=== PATIENT | male | born 1945 | race Caucasian/White ===

== ENCOUNTER 2018-06-11 10:59 | Inpatient (IN) ==
[2018-06-11] MEDS ORDERED: NEO-SYNEPHRINE 50 MG in NS 250 ML IV SCH (12:15)
[2018-06-11] MEDS ORDERED: XANAX PO PRN (12:15)
[2018-06-11] MEDS ORDERED: POTASSIUM CHLORIDE 10 MEQ in NS 1,000 ML IV SCH (13:00)
--- NOTE | 2018-06-11 13:16 | Diag Imaging Result Doc PS360 ---
EXAM: CHEST-PORTABLE 06/11/2018 HISTORY: abnormal exam TECHNIQUE: AP portable at 1259 COMMENT: There are bilateral pleural effusions more so on the left than the right and interstitial and alveolar pulmonary edema. This was not present on 01/11/2013. There are sternotomy wires and anterior mediastinal surgical clips. IMPRESSION: Pulmonary edema and left pleural effusion. Electronically signed by Yaniv Pugh 06/11/2018 1:14 PM
[2018-06-11] MEDS: LEVAQUIN 750 MG/D5W 750 MG/150 ML IVPB IV SCH (13:19)
[2018-06-11] MEDS: SOLU-MEDROL IV SCH ×2 (13:19→20:41)
[2018-06-11 13:47] LABS: BASO# 0.03 X1000 (0.0-0.2); BASO% 0.5 % (0.0-0.8); EOS# 0.18 X1000 (0.0-0.7); EOS% 3.1 % (0.0-10.0); HEMATOCRIT 35.9 % (42.0-52.0); HEMOGLOBIN 11.8 g/dL (14.0-18.0); LYMPH# 1.21 X1000 (1.2-3.4); LYMPH% 20.5 % (20.5-51.1); MCH 29.1 PG (27-31); MCHC 32.9 g/dL (33-37); MCV 88.4 FL (81-99); MONO# 0.49 X1000 (0.11-0.59); MONO% 8.3 % (1.7-9.3); MPV 11.1 FL (7.4-10.4); NEUT# 3.98 X1000 (1.4-6.5); NEUT% 67.6 % (42.2-75.2); PLT 202 X1000 (130-400); RBC 4.06 XMIL (4.7-6.1); RDW 12.7 % (11.5-14.5); WBC 5.89 X1000 (4.8-10.8)
[2018-06-11] MEDS: NORCO-10 PO PRN (13:50)
[2018-06-11] MEDS ORDERED: LASIX IV ONE ×2 (13:53→15:19)
[2018-06-11 14:01] LABS: ALLEN TEST YES; BE 3.7 mmoll (-3.0-3.0); BLOOD TYPE ARTERIAL; HCO3-(ACT) 27.7 mmoll (20.0-26.0); METHB 1.1 % (0.0-1.5); MODALITY CANNULA; O2(CT) 15.4 mL/dL (15.0-23.0); O2HB 93.7 % (95.0-99.0); PCO2(98.6) 43 mmHg (35-45); PO2(98.6) 86 mmHg (60-100); SAMPLE BLOOD; SAO2 97.2 % (95.0-100.0); THB 11.6 g/dL (11.5-17.4); pH(98.6) 7.43 (7.35-7.45)
[2018-06-11 14:16] LABS: AGAP 9; ALB/GLOB RATIO 1.3; ALBUMIN 3.5 g/dL (3.5-5.0); ALKALINE PHOSPHATASE 71 U/L (32-122); BUN 14 mg/dL (8-22); CHLORIDE 100 mmol/L (98-107); COSMO 273; CREATININE 0.7 mg/dL (0.7-1.2); ESTIMATED GFR > 60; GLUCOSE 106 mg/dL (70-104); GOT 8 U/L (10-34); GPT < 5 U/L (10-44); POTASSIUM 4.4 mmol/L (3.5-5.1); SODIUM 136 mmol/L (136-145); TCO2 27 mmol/L (25-35); TOTAL BILIRUBIN 0.32 mg/dL (0.20-1.00); TOTAL PROTEIN 6.2 g/dL (6.3-8.3)
[2018-06-11] MEDS ORDERED: DUONEB (A & A) INH SCH (16:00)
[2018-06-11] MEDS: DUONEB (A & A) INH SCH ×3 (16:29→23:45)
[2018-06-11] MEDS ORDERED: ATIVAN IV PRN (18:50)
--- NOTE | 2018-06-11 19:48 | HISTORY AND PHYSICAL ---
HISTORY OF PRESENT ILLNESS: Mr. Mace is a 72-year-old white gentleman who comes to our office with severe shortness of breath. He also was hypotensive. Blood pressure was around 60 to 70 systolic in the office, and we decided to admit him. He is a known case of COPD and has generalized vascular disease and coronary artery bypass surgery done in 1999, and a left carotid endarterectomy. He had bilateral surgery in both leg arteries, and recently he had a stent put in abdominal aorta and the right common iliac artery. He has a nervous personality. He had one back surgery. He is a chronic heavy smoker, smoked for around 40 to 45 years. He smokes even right now about 2 packs of cigarettes per day. He has usually 3 beers every day and a half a pint of whiskey every night. REVIEW OF SYSTEMS: Other than shortness of breath and generalized weakness and nervousness, is noncontributory. PHYSICAL EXAMINATION: GENERAL: He is alert, oriented. He is not tremulous. VITAL SIGNS: Reveal temperature normal, pulse 65 per minute, respiratory rate 20 per minute, blood pressure 102/63, O2 saturation 92%. HEAD: Normocephalic. EYES: PERRLA. Fundus examination normal. NECK: Supple. JVP normal. ENT: Examination unremarkable. EXTREMITIES: There is no evidence of lymphadenopathy, thyroid enlargement, pedal edema, calf tenderness, anemia, or clubbing. There is mild cyanosis. Pedal pulses are feeble. BREASTS: Normal. CHEST: Normal on inspection. LUNGS: Bilateral poor air entry at the bases. Some rales at the mid zone. HEART: PMI in the 6th left intercostal space, just inside the midclavicular line. Heart sounds normal. No murmur, gallop, or rub noted. ABDOMEN: Nondistended. Reveals a scar from the current surgery. No guarding, rigidity, free fluid, masses, or organomegaly. Bowel sounds normal. RECTAL: Deferred. PRN PHYSICAL THERAPIST: Higher functions normal. Cranial nerves normal. Motor and sensory system examination unremarkable. Deep tendon reflexes normal. Plantars downgoing. SKULL AND SPINE: Examination normal for age. No cerebellar signs or signs of meningeal irritation. Normal locomotor exam. SKIN: Unremarkable. ASSESSMENT: The patient has congestive heart failure. ProBNP is elevated. Chest x-ray shows bilateral pleural effusions and pulmonary edema. PLAN: 1. Give intravenous Lasix. 2. Continue with the Lopressor. 3. Put him on Lovenox subcutaneously. 4. Monitor him in the ICU. 5. At the present time, we will get a pulmonary consult, and later on set up for cardiology consult. cc: Fabian Shearer MD
[2018-06-11] MEDS: AZULFIDINE PO SCH (20:40)
[2018-06-11] MEDS: LIPITOR PO SCH (20:42)
[2018-06-11] MEDS: NORCO-10 PO SCH (20:42)
[2018-06-11] MEDS: LOVENOX SUBQ SCH (20:42)
[2018-06-11] MEDS: XANAX PO SCH (20:43)
--- NOTE | 2018-06-11 20:59 | PULMONOLOGY CONSULTATION ---
DATE: 06/11/2018 REQUESTING PHYSICIAN: Dr. Shearer. REASON FOR CONSULTATION: Respiratory failure. HISTORY OF PRESENT ILLNESS: Mr. Mace is a 72-year-old white male with a greater than 100 pack year history for tobacco, ongoing tobacco use, significant alcohol use, coronary artery disease and significant peripheral vascular disease who recently underwent a stenting of an abdominal aneurysm approximately one month ago. The patient has had continued weakness and decline with episodes of panic attacks since that time. The patient was evaluated by Dr. Shearer today and was in respiratory distress in his office. The patient was admitted to the hospital for additional management. The patient denies fevers or chills. He does have daily cough with yellow sputum which has not changed for a long time. He has had increasing episodes of shortness of breath and panic. He has had increased lower extremity edema. He has not noted significant wheezing. PAST MEDICAL HISTORY: 1. COPD, with ongoing tobacco use. 2. Status post left carotid endarterectomy. 3. Coronary artery bypass grafting x 2. 4. Status post ablation for atrial fibrillation. 5. Recent abdominal aortic aneurysm repair by stenting. 6. Stenting of both lower extremities. 7. Thyroid ablation reported on one previous H P, but patient denies thyroid medication. 8. Hypertension. 9. Dyslipidemia. 10. Status post cervical neck surgery. 11. Status post incisional hernia repair by Dr. Nair following coronary artery bypass grafting. SOCIAL HISTORY: Ongoing tobacco and alcohol use. 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 FAMILY HISTORY: Positive for coronary artery disease, cerebral aneurysms, and COPD. REVIEW OF SYSTEMS: Notable for increased shortness of breath, increased peripheral edema, increasing anxiety. PHYSICAL EXAMINATION: General: Reveals a thin white male resting comfortably and in no distress. BP 103/68, heart rate 71, respiratory rate 20, oxygen saturation 95% on 3 L per nasal cannula. HEENT: Pupils are equal and reactive. Oropharynx appears clear. Neck: Supple. Chest: Reveals crackles in both lung bases. Cardiac: S1, S2. Abdomen: Soft. Extremities: Reveal 1+ peripheral edema. LABORATORIES: Chest x-ray reveals bilateral pleural effusion with pulmonary edema. Arterial blood gas reveals pH 7.43, pCO2 43, PO2 of 86 on 3 L nasal cannula. IMPRESSION: A 72-year-old with: 1. Acute hypoxemic respiratory failure. 2. Pulmonary edema. 3. Pleural effusions. 4. Heart failure. 5. Probable left ventricular clot with decreased ejection fraction noted on echocardiogram. Official report pending. 6. Alcohol abuse. 7. Tobacco abuse. RECOMMENDATIONS: 1. Continue oxygen for hypoxemic respiratory failure. 2. Initiate anticoagulation for possible left ventricular thrombus. 3. Diurese as tolerated. 4. Agree with steroids, nebulizers and antibiotics pending improvement in chest radiograph. 5. Anticipate Cardiology consultation. 6. Recommend smoking cessation and alcohol cessation. 7. [place] use of benzodiazepines with patient's recent discontinuation of alcohol. cc: MD Fabian Lopez MD
[2018-06-12] MEDS: DUONEB (A & A) INH SCH ×6 (03:40→23:59)
[2018-06-12] MEDS: SOLU-MEDROL IV SCH ×3 (04:24→20:31)
[2018-06-12] MEDS: XANAX PO SCH ×3 (04:26→20:30)
[2018-06-12] MEDS: NORCO-10 PO SCH ×4 (04:27→20:31)
[2018-06-12 04:58] LABS: HEMATOCRIT 36.5 % (42.0-52.0); HEMOGLOBIN 12.1 g/dL (14.0-18.0); MCH 29.7 PG (27-31); MCHC 33.2 g/dL (33-37); MCV 89.5 FL (81-99); MPV 11.5 FL (7.4-10.4); RBC 4.08 XMIL (4.7-6.1); RDW 12.6 % (11.5-14.5); WBC 3.46 X1000 (4.8-10.8)
[2018-06-12] MEDS: PRILOSEC PO SCH (06:03)
[2018-06-12 07:18] LABS: AGAP 11; ALB/GLOB RATIO 1.2; ALBUMIN 3.6 g/dL (3.5-5.0); ALKALINE PHOSPHATASE 72 U/L (32-122); BUN 17 mg/dL (8-22); CALCIUM 9.2 mg/dL (8.8-10.2); CHLORIDE 94 mmol/L (98-107); COSMO 273; CREATININE 0.9 mg/dL (0.7-1.2); ESTIMATED GFR > 60; GLUCOSE 163 mg/dL (70-104); GOT 9 U/L (10-34); GPT < 5 U/L (10-44); MAGNESIUM 1.6 mg/dL (1.5-2.7); PHOSPHORUS 4.5 mg/dL (2.7-4.5); POTASSIUM 3.9 mmol/L (3.5-5.1); SODIUM 134 mmol/L (136-145); TCO2 29 mmol/L (25-35); TOTAL BILIRUBIN 0.29 mg/dL (0.20-1.00); TOTAL PROTEIN 6.7 g/dL (6.3-8.3)
--- NOTE | 2018-06-12 07:23 | Diag Imaging Result Doc PS360 ---
CHEST-PORTABLE - 06/12/2018 INDICATION: abnormal exam COMPARISON: 06/11/2018 FINDINGS: Stable CABG changes. Stable cardiomegaly and pulmonary vascular congestion. Stable moderate pulmonary edema. Stable small pleural effusion. There is been increase in the left pleural effusion which is moderate, about 25%. IMPRESSION: Slight increase in the left pleural effusion. Electronically signed by Dread Pate 06/12/2018 7:21 AM
[2018-06-12] MEDS: ALTACE PO SCH (08:50)
[2018-06-12] MEDS: TOPROL XL PO SCH (08:51)
[2018-06-12] MEDS: KLOR-CON PO SCH ×3 (08:51→16:17)
[2018-06-12] MEDS: AZULFIDINE PO SCH ×4 (08:51→20:31)
[2018-06-12] MEDS: ASPIRIN PO SCH (08:51)
[2018-06-12] MEDS: ZOLOFT PO SCH (08:51)
[2018-06-12] MEDS: LASIX IV SCH (08:52)
[2018-06-12] MEDS: NICODERM PATCH TD SCH (08:52)
[2018-06-12] MEDS: LOVENOX SUBQ SCH ×2 (08:52→20:31)
[2018-06-12] MEDS ORDERED: NON-FORMULARY MED (Sertraline Hcl [Zoloft] 100 MG) PO SCH (09:00)
--- NOTE | 2018-06-12 09:11 | PROGRESS NOTE ---
DATE: 06/12/2018 SUBJECTIVE: Mr. Mace is doing better. He is more alert, and less tremulous now. OBJECTIVE: Lungs reveal less wheezing. Heart sounds are normal. Abdomen is soft and nontender. PLAN: We can move him out to [facility] today. We will also try to get the cardiology consult. Repeat some lab values and chest x-ray in the morning. IMPRESSION: 1. Congestive heart failure. 2. COPD with acute exacerbation. 3. History of cigarette and alcohol abuse. cc: Fabian Shearer MD
[2018-06-12] MEDS: ATIVAN IV PRN ×2 (09:53→17:24)
--- NOTE | 2018-06-12 11:39 | ECHO REPORT ---
ORDER DATE: 06/11/2018 INTERPRETING PHYSICIAN: Dr. Juan F Feliciano. ECHOCARDIOGRAPHIC MEASUREMENTS: 1. Interventricular septum 1.1. 2. Left ventricular posterior wall 1.1. 3. Left ventricular diastolic diameter 5.8. 4. Left ventricular systolic diameter 4.8. 5. Left atrium 4.3. 6. Aorta 4.3. SUMMARY OF THE 2-DIMENSIONAL IMAGIN. Ascending aorta was dilated. Left atrium was enlarged. 2. Aortic valve leaflets are trileaflet. Tricuspid valve was normal. Pulmonic valve not well visualized. Technically suboptimal study. 3. Optison was used to assess left ventricular systolic function. 4. There was mild mitral regurgitation. There is mitral annular calcification. There is a mild tricuspid regurgitation. Peak velocity across the tricuspid valve was 2.8 meters per second. Pulmonary artery systolic pressure of 42 mmHg. 5. Peak velocity across the aortic valve less than 2 meters per second. 6. There is no aortic stenosis or regurgitation. 7. Normal left ventricular cavity size. 8. There is anteroseptal and apical hypokinesis. 9. The left ventricular apex is akinetic. There is a thrombus noted in the left ventricular apex. There is diastolic dysfunction. 10. There is no pericardial effusion. CONCLUSIONS: Left ventricular cavity size is normal. There is apical akinesis with anteroseptal hypokinesis. Estimated ejection fraction off estimated ejection fraction of 35%. There is an apical thrombus noted. cc: MD Hari Honeycutt MD Amit V. Vora, MD
--- NOTE | 2018-06-12 13:00 | CARDIOLOGY CONSULTATION ---
DATE: 06/12/2018 CONSULTATION REQUESTED BY: Dr. Shearer. REASON FOR CONSULTATION: Dyspnea, CHF/ abnormal echo (thrombus). Irregular heartbeat. Possible atrial fibrillation. PRIMARY HEAD BELLHOP CAPTAIN: Dr. Jovan Friedman in [place]. PRIMARY VASCULAR SURGEON: Dr. Leonard in [place]. HISTORY OF PRESENT ILLNESS: Mr. Mace is a 72-year-old, male who presented to the hospital for admission on 06/11/2018 with complaints of feeling increasingly restless, short of breath, weak at home. Upon presentation, they did a chest x-ray that shows pulmonary edema, left pleural effusion. His blood gases showed a pO2 all of 86, pCO2 of 43, pH 7.43. ProBNP level was elevated at 10,797. His electrolytes, BUN, and creatinine were all normal. Hemoglobin is 11.8 g percent. The patient since admission has been given Lasix and he feels that he is breathing better now. He has never had a previous diagnosis of heart attack or congestive heart failure. His EKG at the time of presentation had not been done. His telemetry shows sinus rhythm. There was a brief episode where it appeared that he had atrial fibrillation. That does not seem to be the case now. PAST MEDICAL HISTORY: Positive for hypertension, hyperlipidemia. He has history of severe peripheral vascular disease. He carries diagnosis of severe CAD. He was followed by Dr. Jerrell Swan in [place] ([facility]) for many years. He just saw Dr.Gautam Friedman in [place] in February of 2018 as preop evaluation prior to having Carotid artery surgery. A nuclear MPI study showed nishi apical scar with trivial ischemia and echo done in November 2017 showed apical thrombus,organized with anteroapical akinesis. He has significant LV systolic dysfunction. cleared him for his carotid surgery. PAST SURGICAL HISTORY: Patient has had 2 open heart procedures. One about 1989 ,another one about 2000 or so. He has had a stent to the legs, details escape at this time. He had left carotid endarterectomy and most recently, he had an abdominal aortic aneurysm stent by Dr. Leonard in [place]. May 2018. I have reviewed some records. He has had previous endoscopies for presumed GI bleeding. SOCIAL HISTORY: He is single. He has 1 daughter who lives in [place]. 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 He suffered multiple injuries. He says that he smokes 2 packs of cigarettes a day. He also drinks about 3 beers a day and 1 pint of whiskey a day. He says that his weight at the time of his best health was 220 pounds, now he is down to about 138 pounds. REVIEW OF SYSTEMS: He has been feeling increasingly more short of breath lately. No other positives on the multiple system review. FAMILY HISTORY: Really noncontributory. Father had brain aneurysm. HOME MEDICATIONS: At the time of the present admission as follows: 1. Alprazolam 1 mg 3 times a day. 2. Aspirin 81 daily. 3. Atorvastatin 80 daily. 4. Hydrocodone Tyler 10/325 three times a day. 5. Metoprolol 200 daily. 6. Omeprazole 20 mg daily. 7. Ramipril 10 mg daily. 8. Zoloft 100 daily. 9. Sulfasalazine 500 four times a day. PHYSICAL EXAMINATION: Vital signs: Blood pressure is 127/79, temperature 98.7, pulse 72, respirations 14. General: The patient is awake, alert, oriented, in no distress. HEENT: Unremarkable. Chest: Diminished breath sounds bilaterally with occasional scattered rhonchi. Heart: Heart sounds are regular rhythmic. I do not hear any definite gallop or murmur. Abdomen: Nontender, soft. No masses. No hepatomegaly. Extremities: Showed no edema. Pulses are diminished. Neurologic: He moves all extremities. He has no weakness. DIAGNOSTIC DATA: Chest x-ray, as I said, shows congestive heart failure, bilateral effusions. There are external wires suggesting that this patient has had indeed open chest procedure. We do not have any records on any prior operation of the chest. LABORATORY WORK: At this time shows hemoglobin 12.1, white cell count 3460. Sodium 134, potassium 3.9. Liver function tests are normal. IMPRESSION: 1. The patient presented with pulmonary edema, CHF, dyspnea. Reason for this is likely to be a combination of his severe CAD, underlying LV systolic dysfunction (chronic) with nishi apical akinesis and his heavy alcohol consumption. 2. Status post thoracic aortic stent according to the patient. 3. Long-term heavy smoker. 4. Long-term heavy drinker. 5. Intracardiac thrombus is organized ,old. Patient may or may not benefit from anticoagulation. (high risk if frail,drinker and non compliant). RECOMMENDATION: At this time, we will pursue management of CHF in standard fashion. We will use loop diuretics, YOCASTA inhibitors, beta blockers if tolerated. spironolactone/digoxin if possible. The patient has severe extensive peripheral vascular disease with extremely severe atherosclerotic disease involving the aorta, the iliac arteries and lower extremities as noted on CT of the aorta dated 03/14/2016. At this time, he is counseled against smoking and drinking. We will continue with Lasix as Dr. Shearer is doing. He is also on good YOCASTA inhibition and beta blockade. I really have to get the records from [place] to know exactly what this patient has received in the past. Further advice will be forthcoming. cc: MD Fabian Martin MD [facility] HOSPITALNilay
[2018-06-12] MEDS: LEVAQUIN 750 MG/D5W 750 MG/150 ML IVPB IV SCH (13:28)
[2018-06-12] MEDS: ZOFRAN IV PRN (17:16)
[2018-06-12] MEDS ORDERED: GAVISCON PO ONE ×2 (17:36→20:59)
[2018-06-12] MEDS: NORCO-10 PO PRN (19:27)
[2018-06-12] MEDS: LIPITOR PO SCH (20:30)
[2018-06-13] MEDS: DUONEB (A & A) INH SCH ×5 (03:55→19:35)
[2018-06-13] MEDS: XANAX PO SCH ×3 (05:26→20:04)
[2018-06-13] MEDS: NORCO-10 PO SCH ×3 (05:26→20:04)
[2018-06-13] MEDS: SOLU-MEDROL IV SCH ×3 (05:28→20:04)
[2018-06-13 06:03] LABS: AGAP 10; BUN 23 mg/dL (8-22); CHLORIDE 98 mmol/L (98-107); COSMO 282; ESTIMATED GFR > 60; GLUCOSE 152 mg/dL (70-104); SODIUM 138 mmol/L (136-145); TCO2 30 mmol/L (25-35)
[2018-06-13] MEDS: PRILOSEC PO SCH (06:14)
[2018-06-13] MEDS: ZOLOFT PO SCH (09:22)
[2018-06-13] MEDS: TOPROL XL PO SCH (09:22)
[2018-06-13] MEDS: NICODERM PATCH TD SCH (09:23)
[2018-06-13] MEDS: ALTACE PO SCH (09:23)
[2018-06-13] MEDS: LASIX IV SCH (09:23)
[2018-06-13] MEDS: KLOR-CON PO SCH ×3 (09:23→16:40)
[2018-06-13] MEDS: ASPIRIN PO SCH (09:23)
[2018-06-13] MEDS: LOVENOX SUBQ SCH ×2 (09:23→20:04)
[2018-06-13] MEDS ORDERED: SODIUM CHLORIDE 0.9% INJ SCH (10:45)
[2018-06-13] MEDS: AZULFIDINE PO SCH ×4 (11:06→20:04)
--- NOTE | 2018-06-13 11:31 | PROGRESS NOTE ---
DATE: 06/13/2018 SUBJECTIVE: A 72-year-old white male patient of Dr. Shearer, transferred out of the ICU last night to the [facility], admitted to the hospital with shortness of breath, low blood pressure. PAST MEDICAL HISTORY: Reviewed. PAST SURGICAL HISTORY: Reviewed. ALLERGIES: Loratadine, oxycodone, Tylenol. REVIEW OF SYSTEMS: Hiccups, a little bit jittery. The patient's and the daughter were at bedside. Rest of the review of systems unremarkable. PHYSICAL EXAMINATION: Vital signs: Temperature is 97.6, pulse 67, blood pressure 118/78, 3 L nasal cannula 97%. General: Cachetic. HEENT: Within normal limits. Chest: Bilateral air entry. Heart: Sounds are regular. Abdomen: Belly is soft, nontender, no signs of peritonitis. Extremities: No peripheral edema. Neurologic: No obvious neurological deficits. INVESTIGATIONS: CBC: White cell count 3.4, hematocrit 36, platelets 193,000. SMA-7: Sodium 138, potassium 4.0, BUN 23, creatinine 1.0, glucose 152. ProBNP 35761. Blood cultures are negative. Chest x-ray, stable bypass changes, slight left pleural effusion. ASSESSMENT: 1. Shortness of breath due to a combination of chronic obstructive pulmonary disease and congestive heart failure due to ischemic cardiomyopathy, ejection fraction 35%. 2. Peripheral vascular disease status post left carotid endarterectomy. 3. History of abdominal aortic aneurysm stent and peripheral vascular disease. 4. Chronic tobacco abuse and chronic alcohol abuse. PLAN OF CARE: 1. Watch for DTs and withdrawals. Continue on Xanax and Nicotrol patch. 2. Hiccups. with Gaviscon and IV Protonix. 3. Congestive heart failure with left pleural effusion with ischemic cardiomyopathy. IV Lasix. 4. For COPD, continue on IV Levaquin. Decrease the prednisone 40 mg IV q.8. 5. Ischemic cardiomyopathy, seen by Dr. Walker. On Altace 10 daily, IV Lasix, metoprolol 200 daily. 6. History of apical thrombosis. On Lovenox 60 q.12. 7. Hyperlipidemia. On Lipitor. 8. Depression. On Zoloft. 9. Living will, DNR and continue present treatment. LEVEL OF DOCUMENTATION: 35 minutes. cc: MD Fabian Paul MD MTDD
[2018-06-13] MEDS: PROTONIX IV SCH (12:00)
--- NOTE | 2018-06-13 12:09 | Diag Imaging Result Doc PS360 ---
EXAM: CHEST-PORTABLE INDICATION: CHF TECHNIQUE: One view COMPARISON: 06/12/2018 FINDINGS: Given differences in positioning, the bilateral pleural effusions are approximately stable. Pulmonary edema appears to have improved slightly during the interval. No new consolidation is identified. Cardiac silhouette is stable. IMPRESSION: Slight improvement of pulmonary edema. Stable chest, otherwise. Electronically signed by Herb Brannon 06/13/2018 12:07 PM
[2018-06-13] MEDS: LEVAQUIN 750 MG/D5W 750 MG/150 ML IVPB IV SCH (12:16)
[2018-06-13] MEDS: GAVISCON PO PRN ×3 (13:30→20:50)
[2018-06-13] MEDS: ATIVAN IV PRN ×2 (16:40→20:51)
[2018-06-13] MEDS: LIPITOR PO SCH (20:03)
--- NOTE | 2018-06-13 20:09 | PROGRESS NOTE ---
DATE: 06/13/2018 SUBJECTIVE: Patient continues without shortness of breath or chest discomfort on supplemental oxygen per nasal cannula. He complains of hiccups. OBJECTIVE: Vital Signs: Blood pressure 114/75, heart rate 66, oxygen saturation 99% on nasal cannula oxygen at 3 L/minute. Neck: Jugular venous distention is not appreciated. Auscultation chest reveals diminished breath sounds diffusely. Cardiac exam: Reveals a regular rate and rhythm without appreciable murmur or gallop. Extremities: Are without edema. LABORATORY DATA: Includes sodium 138, potassium 4.0, chloride 98, carbon dioxide 30, BUN 23, creatinine 1.0, glucose 152. IMPRESSION: 1. Acute on chronic systolic heart failure improving with diuresis. 2. Chronic obstructive pulmonary disease with exacerbation. 3. Extensive history of peripheral vascular disease. 4. Chronic heavy cigarette use. 5. Chronic alcohol use. 6. Intracardiac thrombus felt to be organized/old. RECOMMENDATIONS: 1. Continue current rate of diuresis in cardiovascular regimen. 2. Repeat PA and lateral chest x-ray in a.m. 3. Patient counseled strongly against continued cigarette use and alcohol use. cc: MD Fabian Rosen MD
[2018-06-14] MEDS: DUONEB (A & A) INH SCH ×7 (04:24→23:56)
[2018-06-14] MEDS: XANAX PO SCH ×3 (05:07→20:49)
[2018-06-14] MEDS: SOLU-MEDROL IV SCH ×3 (05:07→20:50)
[2018-06-14] MEDS: NORCO-10 PO SCH ×3 (05:07→20:49)
[2018-06-14] MEDS: AZULFIDINE PO SCH ×4 (09:35→20:49)
[2018-06-14] MEDS: LOVENOX SUBQ SCH ×2 (09:36→20:50)
[2018-06-14] MEDS: ASPIRIN PO SCH (09:36)
[2018-06-14] MEDS: ZOLOFT PO SCH (09:36)
[2018-06-14] MEDS: ALTACE PO SCH (09:36)
[2018-06-14] MEDS: TOPROL XL PO SCH (09:36)
[2018-06-14] MEDS: NICODERM PATCH TD SCH (09:36)
[2018-06-14] MEDS: KLOR-CON PO SCH ×3 (09:36→17:10)
[2018-06-14] MEDS: LASIX IV SCH (09:36)
--- NOTE | 2018-06-14 10:43 | Diag Imaging Result Doc PS360 ---
EXAM: CHEST-2 VIEWS HISTORY: CHF post diuresis, COPD TECHNIQUE: Chest two views COMPARISON: 06/13/2018 FINDINGS: The lungs are hyperexpanded except for basilar atelectasis. There are small pleural effusions. Heart is mildly enlarged. Decreased pulmonary edema. The sternal wires and surgical clips. IMPRESSION: 1.Decreased pulmonary edema 2.Small pleural effusions with basilar atelectasis 3.Emphysema Electronically signed by Benedicto Gutierrez 06/14/2018 10:40 AM
[2018-06-14] MEDS: LEVAQUIN 750 MG/D5W 750 MG/150 ML IVPB IV SCH (12:17)
--- NOTE | 2018-06-14 13:37 | PROGRESS NOTE ---
DATE: 06/14/2018 SUBJECTIVE: The patient had a chest x-ray done. Hiccups are better after taking Gaviscon and IV Protonix. The patient's daughter visiting from [place] is at bedside. REVIEW OF SYSTEMS: No chest pain, shortness of breath. Slightly withdrawing. PHYSICAL EXAMINATION: Temperature 98.1 degrees, pulse 69, blood pressure 130/79, 3 L nasal cannula. He is in no respiratory distress. Cachectic. Not using accessory muscles of the neck. Chest has bilateral air entry. Heart sounds are regular. Belly is soft, scaphoid. No edema noted. INVESTIGATIONS: Chest x-ray: COPD with bilateral pleural effusion. ASSESSMENT AND PLAN: 1. Acute chronic obstructive pulmonary disease exacerbation. Currently on IV Levaquin, prednisone 40 mg IV q.8 h. 2. Acute systolic dysfunction with congestive heart failure with ischemic cardiomyopathy. IV Lasix. 3. Hiccups are better. 4. Watch for delirium tremens and withdrawals. Continue on Xanax and Nicotrol patch. 5. History of left ventricle apical thrombosis. On Lovenox 60 q.12 h. 6. Hyperlipidemia. On Lipitor. 7. History of depression. On Zoloft. 8. Living will/Do Not Resuscitate. 9. Peripheral vascular disease, stable, and Dr. Shearer is going to follow up and continue present treatment and repeat the labs in the morning. LEVEL OF DOCUMENTATION: 25 minutes. cc: MD Fabian Paul MD
[2018-06-14] MEDS: ATIVAN IV PRN (13:50)
[2018-06-14] MEDS: NORCO-10 PO PRN (17:10)
[2018-06-14] MEDS: PROTONIX IV SCH (17:10)
[2018-06-14] MEDS: LIPITOR PO SCH (20:49)
[2018-06-15] MEDS: DUONEB (A & A) INH SCH ×6 (03:46→23:20)
[2018-06-15] MEDS: XANAX PO SCH ×3 (04:14→20:43)
[2018-06-15] MEDS: SOLU-MEDROL IV SCH ×3 (04:14→20:43)
[2018-06-15] MEDS: NORCO-10 PO SCH ×3 (04:14→20:42)
[2018-06-15 06:01] LABS: EOS# 0.03 X1000 (0.0-0.7); EOS% 0.3 % (0.0-10.0); HEMATOCRIT 40.9 % (42.0-52.0); HEMOGLOBIN 13.3 g/dL (14.0-18.0); IMM GRAN# 0.02 X1000 (0.0-0.04); IMM GRAN% 0.2 % (0.0-0.5); LYMPH# 0.48 X1000 (1.2-3.4); LYMPH% 4.8 % (20.5-51.1); MCHC 32.5 g/dL (33-37); MCV 89.3 FL (81-99); MONO# 0.38 X1000 (0.11-0.59); MONO% 3.8 % (1.7-9.3); MPV 11.6 FL (7.4-10.4); NEUT% 90.9 % (42.2-75.2); PLT 179 X1000 (130-400); RBC 4.58 XMIL (4.7-6.1); RDW 12.8 % (11.5-14.5); WBC 10.01 X1000 (4.8-10.8)
[2018-06-15 06:26] LABS: AGAP 13; BUN 34 mg/dL (8-22); CALCIUM 9.2 mg/dL (8.8-10.2); CHLORIDE 99 mmol/L (98-107); COSMO 288; ESTIMATED GFR > 60; GLUCOSE 115 mg/dL (70-104); POTASSIUM 4.3 mmol/L (3.5-5.1); SODIUM 140 mmol/L (136-145); TCO2 28 mmol/L (25-35)
[2018-06-15 07:52] LABS: LYMPHS 12 % (21-51); SEGS 88 % (42-75)
[2018-06-15] MEDS: ALTACE PO SCH (08:02)
[2018-06-15] MEDS: TOPROL XL PO SCH (08:02)
[2018-06-15] MEDS: NICODERM PATCH TD SCH ×2 (08:02→08:04)
[2018-06-15] MEDS: ZOLOFT PO SCH (08:02)
[2018-06-15] MEDS: AZULFIDINE PO SCH ×4 (08:02→20:42)
[2018-06-15] MEDS: LASIX IV SCH (08:03)
[2018-06-15] MEDS: LOVENOX SUBQ SCH ×2 (08:03→20:43)
[2018-06-15] MEDS: KLOR-CON PO SCH ×3 (08:03→17:18)
[2018-06-15] MEDS: ASPIRIN PO SCH (08:03)
--- NOTE | 2018-06-15 09:26 | PROGRESS NOTE ---
DATE: 06/15/2018 Mr. Mace is still very weak. His white count is up. Electrolytes are stable. He is getting IV antibiotics. Overall condition is unchanged. His lungs reveal minimal wheezing now. Overall condition is unchanged. He is on IV Levaquin, which we will continue. We will ask for rehab on him, and start physical therapy. cc: Fabian Shearer MD
[2018-06-15] MEDS: LEVAQUIN 750 MG/D5W 750 MG/150 ML IVPB IV SCH (12:45)
[2018-06-15] MEDS: PROTONIX IV SCH (17:18)
--- NOTE | 2018-06-15 18:19 | PULMONOLOGY PROGRESS NOTE ---
DATE: 06/15/2018 SUBJECTIVE: The patient is awake, alert, and conversant. He reports his shortness of breath has significantly improved. OBJECTIVE: Vital Signs: Blood pressure 107/81, heart rate 66, respiratory rate 18, oxygen saturation 97% on 3 liters per nasal cannula. HEENT: Pupils are equal and reactive. Oropharynx is clear. Neck: Supple. Chest: Reveals prolonged expiratory phase with crackles in the bases. Cardiac: S1 and S2. Abdomen: Soft and without hepatosplenomegaly. Extremities: Reveal trace edema. LABORATORIES: Sodium 140, potassium 4.3, chloride 99, bicarbonate 28, BUN 34, creatinine 1. Chest x-ray yesterday reveals small pleural effusions, which have decreased over admission, and decreasing pulmonary edema. IMPRESSION: A 72-year-old with: 1. Acute hypoxemic respiratory failure. 2. Congestive heart failure, systolic in nature. 3. Pleural effusions. 4. Pulmonary edema. 5. Chronic organized left ventricular thrombus. 6. Alcohol abuse. 7. Tobacco abuse. RECOMMENDATIONS: 1. Continue rehab as tolerated. 2. Continue bronchodilators. 3. The patient is strongly encouraged to discontinue alcohol from a cardiac standpoint and tobacco from a lung standpoint. 4. Anticipate rehabilitation stay. cc: MD Fabian Lopez MD
[2018-06-15] MEDS: LIPITOR PO SCH (20:42)
[2018-06-16] MEDS: DUONEB (A & A) INH SCH ×6 (03:05→23:10)
[2018-06-16] MEDS: SOLU-MEDROL IV SCH ×3 (04:18→20:39)
[2018-06-16] MEDS: NORCO-10 PO SCH ×3 (04:18→20:39)
[2018-06-16] MEDS: XANAX PO SCH ×3 (04:18→20:39)
[2018-06-16] MEDS: TOPROL XL PO SCH (08:11)
[2018-06-16] MEDS: LASIX IV SCH (08:11)
[2018-06-16] MEDS: KLOR-CON PO SCH ×3 (08:11→16:20)
[2018-06-16] MEDS: LOVENOX SUBQ SCH (08:11)
[2018-06-16] MEDS: NICODERM PATCH TD SCH ×2 (08:11→08:15)
[2018-06-16] MEDS: AZULFIDINE PO SCH ×4 (08:11→20:39)
[2018-06-16] MEDS: ALTACE PO SCH (08:11)
[2018-06-16] MEDS: ASPIRIN PO SCH (08:11)
[2018-06-16] MEDS: ZOLOFT PO SCH (08:11)
[2018-06-16] MEDS ORDERED: DULCOLAX PR ONE (09:17)
--- NOTE | 2018-06-16 10:08 | PROGRESS NOTE ---
DATE: 06/16/2018 SUBJECTIVE: Mr. Mace is doing much better. His lung sounds are clear. Regular sinus rhythm. His echocardiogram results are noted. Ejection significantly low. He is in congestive heart failure. Also has an acute exacerbation of COPD. We are waiting for a rehab bed on him. We probably will transfer him tomorrow. He prefers to go to [facility]. cc: Fabian Shearer MD
--- NOTE | 2018-06-16 11:05 | CARDIOLOGY PROGRESS NOTE ---
DATE: 06/16/2018 CHIEF COMPLAINT: Shortness of breath. SUBJECTIVE: Mr. Mace has progressed well over the course of the past 3 days. He is breathing more comfortably. His CHF is clearing up. A followup chest x-ray from the showed decreased pulmonary edema, small pleural effusions, emphysema. His major issue right now is he has easy bleeding and easy bruising. PHYSICAL EXAMINATION: Vital signs: Blood pressure 134/82, pulse 70, respirations 16, temperature 97.7. Telemetry indicates sinus rhythm. No arrhythmia noted. General: He is sitting upright. Family is at the bedside. He is in no distress. He does have extensive easy bruising in both forearms. He is really skinny, cachetic, BMI is 18.2. HEENT: Otherwise unremarkable. Chest: Diffusely diminished breath sounds. Heart: Sounds are regular and rhythmic, distant, without gallop or murmur. Abdomen: Nontender, soft, no masses or hepatomegaly. Extremities: Showed decreased pulses. No peripheral edema. Neurological exam: He follows commands, move all 4 extremities. He has not gone through full DTs. LABORATORY: Blood work from yesterday: Sodium 140, potassium 4.3, BUN 34, creatinine 1.0. IMPRESSION: Patient with: 1. Congestive heart failure, chronic systolic heart failure, secondary to severe coronary heart disease, 2 open heart surgery procedures in the past. 2. 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 This has probably been endothelialized by now and does not require any heavy anticoagulation. The patient is a very poor candidate for anticoagulation given his frailty, his tendency to fall, and his low body mass. 3. Patient with long-term history of alcohol abuse and tobacco abuse. 4. Chronic obstructive pulmonary disease, advanced. RECOMMENDATIONS: At this point in time, the patient is on optimal medical therapy. I would cutdown the Lovenox to only subcutaneous doses 30 mg once a day just for DVT prophylaxis purposes. The patient should probably be kept on low-dose aspirin indefinitely, and from my viewpoint he is fit to be discharged to rehab facility to continue his convalescence. He understands that he is going to quit drinking and smoking at the same time. cc: MD Fabian Martin MD
[2018-06-16] MEDS: LEVAQUIN 750 MG/D5W 750 MG/150 ML IVPB IV SCH (12:21)
[2018-06-16] MEDS: PROTONIX IV SCH (16:20)
[2018-06-16] MEDS: LIPITOR PO SCH (20:39)
[2018-06-17] MEDS: DUONEB (A & A) INH SCH ×6 (01:10→23:55)
[2018-06-17] MEDS: NORCO-10 PO SCH ×3 (05:41→20:21)
[2018-06-17] MEDS: LINZESS PO SCH ×2 (05:41→08:50)
[2018-06-17] MEDS: XANAX PO SCH ×3 (05:41→20:20)
[2018-06-17] MEDS: LOVENOX SUBQ SCH ×2 (05:41→08:51)
[2018-06-17] MEDS: SOLU-MEDROL IV SCH ×3 (05:41→20:21)
[2018-06-17] MEDS: ASPIRIN PO SCH (08:50)
[2018-06-17] MEDS: TOPROL XL PO SCH (08:50)
[2018-06-17] MEDS: KLOR-CON PO SCH ×3 (08:50→16:22)
[2018-06-17] MEDS: NICODERM PATCH TD SCH (08:51)
[2018-06-17] MEDS: AZULFIDINE PO SCH ×4 (08:51→20:20)
[2018-06-17] MEDS: LASIX IV SCH (08:51)
[2018-06-17] MEDS: ALTACE PO SCH (08:51)
[2018-06-17] MEDS: ZOLOFT PO SCH (08:51)
--- NOTE | 2018-06-17 09:10 | PROGRESS NOTE ---
DATE: 06/17/2018 SUBJECTIVE: Mr. Mace is somewhat agitated today. He says he is not going to the rehab. He wants to go home. He has not been in congestive heart failure. Has acute bronchitis with bad COPD. His ejection fraction is around 30%. He has severe anxiety, alcohol and nicotine dependence. We will watch him today. Get the electrolytes status in the morning, and then decide about sending him home. -2 cc: Fabian Shearer MD
[2018-06-17] MEDS: GAVISCON PO PRN (10:32)
[2018-06-17] MEDS: LEVAQUIN 750 MG/D5W 750 MG/150 ML IVPB IV SCH (12:33)
[2018-06-17] MEDS: ZOFRAN IV PRN (12:42)
[2018-06-17] MEDS ORDERED: FLEET ENEMA PR PRN (14:07)
[2018-06-17] MEDS ORDERED: FLEET ENEMA PR ONE (14:07)
[2018-06-17] MEDS: LIPITOR PO SCH (20:21)
--- NOTE | 2018-06-17 20:51 | PULMONOLOGY PROGRESS NOTE ---
DATE: 06/17/2018 SUBJECTIVE: The patient is awake and alert. He was straining in the bathroom and has developed some nausea. He reports his breathing has improved. OBJECTIVE: Vital Signs: Blood pressure 130/85, heart rate 69, respiratory rate 18, oxygen saturation 96% on 2 L per nasal cannula. HEENT: Pupils are equal and reactive. Oropharynx is clear. Neck: Supple. Chest: Prolonged expiratory phase with no wheezing. IMPRESSION: A 72-year-old with: 1. Chronic obstructive pulmonary disease. 2. Acute hypoxemic respiratory failure. 3. Congestive heart failure, with a reduction in ejection fraction. 4. Small effusions. 5. Pulmonary edema. 6. Alcohol abuse. 7. Tobacco use/abuse. RECOMMENDATIONS: 1. Rehabilitation is recommended, but it appears the patient may be refusing. 2. Continue bronchodilators. 3. Encourage patient to discontinue alcohol and tobacco. cc: MD Fabian Lopez MD
[2018-06-17] MEDS: ATIVAN IV PRN (21:52)
[2018-06-18] MEDS: DUONEB (A & A) INH SCH ×5 (03:47→19:52)
[2018-06-18] MEDS: NORCO-10 PO SCH ×3 (05:51→20:50)
[2018-06-18] MEDS: SOLU-MEDROL IV SCH ×3 (05:51→20:51)
[2018-06-18] MEDS: XANAX PO SCH ×3 (05:51→20:50)
[2018-06-18 06:04] LABS: HEMATOCRIT 42.1 % (42.0-52.0); HEMOGLOBIN 13.9 g/dL (14.0-18.0); LYMPH# 0.62 X1000 (1.2-3.4); LYMPH% 3.5 % (20.5-51.1); MCH 29.3 PG (27-31); MCV 88.6 FL (81-99); MONO# 1.27 X1000 (0.11-0.59); MONO% 7.1 % (1.7-9.3); NEUT# 15.95 X1000 (1.4-6.5); NEUT% 89.4 % (42.2-75.2); PLT 204 X1000 (130-400); RBC 4.75 XMIL (4.7-6.1); RDW 12.8 % (11.5-14.5); WBC 17.84 X1000 (4.8-10.8)
[2018-06-18] MEDS: LINZESS PO SCH (06:15)
[2018-06-18 06:20] LABS: CALCIUM 8.9 mg/dL (8.8-10.2); POTASSIUM 5.1 mmol/L (3.5-5.1)
[2018-06-18] MEDS: LOVENOX SUBQ SCH (08:31)
[2018-06-18] MEDS: NICODERM PATCH TD SCH (08:35)
[2018-06-18] MEDS: TOPROL XL PO SCH (08:35)
[2018-06-18] MEDS: AZULFIDINE PO SCH ×4 (08:35→20:50)
[2018-06-18] MEDS: ZOLOFT PO SCH (08:35)
[2018-06-18] MEDS: ASPIRIN PO SCH (08:35)
[2018-06-18] MEDS: ALTACE PO SCH (08:35)
[2018-06-18] MEDS: LASIX IV SCH (08:35)
[2018-06-18] MEDS: KLOR-CON PO SCH ×3 (08:35→16:21)
--- NOTE | 2018-06-18 09:06 | PROGRESS NOTE ---
DATE: 06/18/2018 SUBJECTIVE: Mr. Mace was given enema yesterday and he says since then he has diarrhea. He was sick in the stomach, threw up several times. He has been passing some blood in the stool. We are going to hold on the Lovenox today and hold on the discharge. OBJECTIVE: Physical exam reveals abdomen is soft but somewhat tender. PLAN: He has a bed at [facility]. However, we are going to hold on it. cc: Fabian Shearer MD
[2018-06-18] MEDS: PROTONIX PO SCH (10:56)
[2018-06-18] MEDS: LEVAQUIN 750 MG/D5W 750 MG/150 ML IVPB IV SCH (12:29)
[2018-06-18] MEDS: GAVISCON PO PRN (12:31)
[2018-06-18] MEDS ORDERED: D5 NS 1,000 ML IV SCH (20:00)
[2018-06-18] MEDS: LIPITOR PO SCH (20:51)
--- NOTE | 2018-06-18 21:09 | PULMONOLOGY PROGRESS NOTE ---
DATE: 06/18/2018 SUBJECTIVE: The patient is awake and alert. He feels a little better, but had several episodes of emesis yesterday with diarrhea and some bloody stool. His p.o. intake is limited. OBJECTIVE: Vital Signs: Blood pressure 107/70, heart rate 68, respiratory rate 20. Oxygen saturation 95% on 1 L per nasal cannula. HEENT: Pupils are equal and reactive. Oropharynx is clear. Neck: Supple. Chest: Reveals prolonged expiratory phase with decreased breath sounds in the bases. Cardiac: S1, S2. Abdomen: Soft. Extremities: Without edema. LABORATORIES: White blood count is increased to 17.8, hemoglobin 13.9, platelet count 204,000. Chemistry: Sodium 134, potassium 5.1, chloride 95, bicarbonate 22, BUN 68, creatinine 2.0. IMPRESSION: 1. A 72-year-old with chronic obstructive pulmonary disease. 2. Acute hypoxemic respiratory failure. 3. Congestive heart failure with reduction in ejection fraction. 4. Pulmonary edema. 5. Pleural effusions. 6. Alcohol abuse. 7. Tobacco use. 8. Acute renal insufficiency. 9. Acute change in white blood count. DISCUSSION: A 72-year-old with problems outlined above. The patient has a component of decreased ejection fraction with heart failure, but now has an elevation in BUN and creatinine. He has had several episodes of emesis and diarrhea and is likely dehydrated, although this would not explain his leukocytosis. RECOMMENDATIONS: 1. Fluid bolus this evening. 2. Agree with plans to cancel discharge. 3. Follow up chest x-ray and chemistries tomorrow morning. cc: MD Fabian Lopez MD
[2018-06-19] MEDS: DUONEB (A & A) INH SCH ×4 (01:39→11:31)
[2018-06-19] MEDS: SOLU-MEDROL IV SCH (05:34)
[2018-06-19] MEDS: XANAX PO SCH (05:34)
[2018-06-19] MEDS: NORCO-10 PO SCH (05:34)
[2018-06-19] MEDS: LOVENOX SUBQ SCH ×2 (05:34→07:54)
[2018-06-19] MEDS: PROTONIX PO SCH ×2 (05:34→07:53)
[2018-06-19] MEDS: LINZESS PO SCH ×2 (05:34→07:53)
[2018-06-19 06:34] LABS: HEMOGLOBIN 13.7 g/dL (14.0-18.0); IMM GRAN# 0.05 X1000 (0.0-0.04); IMM GRAN% 0.4 % (0.0-0.5); LYMPH# 0.55 X1000 (1.2-3.4); LYMPH% 4.5 % (20.5-51.1); MCH 28.8 PG (27-31); MCHC 33.4 g/dL (33-37); MCV 86.1 FL (81-99); MONO# 0.83 X1000 (0.11-0.59); MONO% 6.8 % (1.7-9.3); MPV 11.6 FL (7.4-10.4); NEUT# 10.79 X1000 (1.4-6.5); NEUT% 88.3 % (42.2-75.2); PLT 164 X1000 (130-400); RBC 4.76 XMIL (4.7-6.1); RDW 12.6 % (11.5-14.5); WBC 12.22 X1000 (4.8-10.8)
[2018-06-19 06:57] LABS: ALB/GLOB RATIO 1.1; ALBUMIN 3.2 g/dL (3.5-5.0); CALCIUM 8.9 mg/dL (8.8-10.2); CREATININE 1.6 mg/dL (0.7-1.2); MAGNESIUM 2.4 mg/dL (1.5-2.7); PHOSPHORUS 4.4 mg/dL (2.7-4.5); POTASSIUM 4.6 mmol/L (3.5-5.1); TOTAL BILIRUBIN 0.29 mg/dL (0.20-1.00)
--- NOTE | 2018-06-19 07:19 | Diag Imaging Result Doc PS360 ---
EXAM: CHEST-PORTABLE 06/19/2018 HISTORY: abnormal exam TECHNIQUE: AP portable at 0552 COMMENT: Compared to 06/14/2018 the pleural effusions which were present previously have largely resolved. The interstitial opacities have improved as well. IMPRESSION: Improved pulmonary edema and pleural effusions. Electronically signed by Yaniv Pugh 06/19/2018 7:16 AM
[2018-06-19] MEDS: ALTACE PO SCH (10:54)
[2018-06-19] MEDS: TOPROL XL PO SCH (10:54)
[2018-06-19] MEDS: KLOR-CON PO SCH (10:55)
[2018-06-19] MEDS: ASPIRIN PO SCH (10:55)
[2018-06-19] MEDS: AZULFIDINE PO SCH (10:55)
[2018-06-19] MEDS: ZOLOFT PO SCH (10:56)
[2018-06-19] MEDS: NICODERM PATCH TD SCH (10:57)
--- NOTE | 2018-06-19 11:58 | PROGRESS NOTE ---
DATE: 06/19/2018 Mr. Mace is feeling better. His lungs are clear. Heart sounds are normal. He has been without alcohol for about 7 days now. The acute phase is over. We will treat him with Xanax. He is going to the rehab today. -9 cc: Fabian Shearer MD
[2018-06-19 12:14] VITALS: BP 118/70
--- NOTE | 2018-06-19 12:19 | DISCHARGE SUMMARY ---
ADMISSION DATE: 06/11/2018 DISCHARGE DATE: 06/19/2018 HISTORY OF PRESENT ILLNESS: Mr. Mace is a 72-year-old white gentleman who was admitted with severe shortness of breath. He had both acute exacerbation of COPD and had congestive heart failure. Initially, he was hypotensive. PERTINENT DATA IN THE HOSPITAL: Chest x-ray revealed pulmonary edema and left- sided pleural effusion and he has severe COPD. Echocardiogram reveals presence of ascending aorta somewhat dilated left atrium enlarged, has mild mitral regurgitation. Ejection fraction was around 35% and left ventricular cavity size was normal. There was anteroseptal hypokineses. There was an apical thrombus noted. Chest x-ray was repeated on different occasions. The final chest x-ray report shows improved pulmonary edema and pleural effusions. Lab data revealed leukocytosis. His white count was 17.84, hemoglobin 13.9. Blood gases were pH 7.43, pCO2 43, pO2 was 86. Electrolytes are normal. BUN had gone up because of Lasix therapy dehydrating him to some extent. COURSE IN THE HOSPITAL: He was admitted to ICU and then moved out in about 2 days. He had congestive heart failure with left-sided pleural effusion, COPD with acute exacerbation and was treated accordingly. Cardiology consult was made and we will continue the low dose of aspirin on him. He will be seen in the office after his discharge from the rehab. He is going to [facility]. cc: Fabian Shearer MD MTDD
[2018-06-19] MEDS: LASIX IV SCH (13:16)
== END 2018-06-19 13:17 | DRG 190 ==
LOC: DIRADM 10:59 → ICU 11:42 → 3S 06-12 17:00 → 4N 06-18 20:19
PROVIDERS: ADMIT Internal Medicine; ATTEND Internal Medicine
CPT/HCPCS: 71010; 71020; 71045; 71046; 80048; 80053; 82550; 82805; 83735; 83880; 84100; 85025; 85027; 87040; 87070; 87205; 93005; 93306; 94640; 94761; 97162; 97530; A9270; C8929; C9113; J1650; J1940; J1956; J2060; J2405; J2920; J2930; J3480; J7030; J7042; Q9957; S0164